=== PATIENT | male | born 1960 | race Caucasian/White ===

== ENCOUNTER 2018-11-24 10:52 | Outpatient (CLI) | payer MEDICARE ==
--- NOTE | 2018-11-24 12:24 | RAD ---
TWO VIEW CHEST: INDICATIONS: Cough. FINDINGS: The lungs appear clear. No infiltrate. Heart size is upper normal. Osseous structures are unremark able. IMPRESSION: No evidence of acute process. POS: H
== END 2018-11-24 10:53 | disposition home or self-care (01) ==
LOC: NAV RAD 10:52
PROVIDERS: ATTEND Internal Medicine
DX: R05 Cough (principal)
CPT/HCPCS: 71046

== ENCOUNTER 2019-11-12 08:53 | Emergency (ER) | payer MEDICARE | END 2019-11-12 09:50 | disposition home or self-care (01) | LOC: NAV ERS 08:53 | DX: K43.9 Ventral hernia without obstruction or gangrene (principal); M54.2 Cervicalgia; G89.29 Other chronic pain; I10 Essential (primary) hypertension; M10.9 Gout, unspecified; M19.90 Unspecified osteoarthritis, unspecified site; E66.9 Obesity, unspecified; F41.9 Anxiety disorder, unspecified; F17.220 Nicotine dependence, chewing tobacco, uncomplicated; Z79.899 Other long term (current) drug therapy | CPT/HCPCS: 99283 ==

== ENCOUNTER 2020-09-20 18:49 | Emergency (ER) | payer MEDICARE, MEDICAID ==
[~2020-09-20 18:49] MED LIST: Iopamidol 370 76% 100 ML VIAL ONE
[2020-09-20 19:35] LABS: Bilirubin Negative (Negative); Blood, Urine Negative (Negative); Clarity Clear (Clear); Glucose, Urine (Dipstick) Negative (Negative); Ketone, Urine Negative (Negative); Leukocyte Negative (Negative); Nitrite Negative (Negative); Protein, Urine (Dipstick) Negative (Neg-Trace); Urobilinogen 0.2 mg/dL (Less than 2)
[2020-09-20 19:43] LABS: #Basophils 0.1 thou/uL (0.0-0.2); #Eosinphils 0.2 thou/uL (0.0-0.7); #Lymphocytes 1.7 thou/uL (1.20-3.40); #Monocytes 0.6 thou/uL (0.11-0.59); #Neutrophils 6.5 thou/uL (1.40-6.50); %Basophils 1.2 % (0.0-1.0); %Eosinophils 2.1 % (0.0-10.0); %Monocytes 6.3 % (0.0-10.0); %Neutrophils 71.4 % (42.0-75.0); Hemoglobin 16.1 g/dL (14.0-18.0); Mean Corpuscular HGB CONC 31.8 g/dL (32.0-36.0); Mean Corpuscular Hemoglobin 30.6 pg (27.0-31.0); Mean Corpuscular Volume 96.3 fL (78.0-98.0); Mean Platelet Volume 6.1 fL (7.4-10.4); Platelet Count 272 thou/uL (130-400); RBC Distribution Width 13.2 % (11.5-14.5); Red Blood Cell (RBC) Count 5.26 mill/uL (4.70-6.10); White Blood Cell (WBC) Count 9.1 thou/uL (4.8-10.8)
[2020-09-20 19:52] LABS: ALT (SGPT) 15 U/L (8-55); AST (SGOT) 19 U/L (5-34); Albumin 3.9 g/dL (3.4-4.8); Alkaline Phosphatase 64 U/L (40-110); Anion Gap 15 mmol/L (10-20); BUN (Urea Nitrogen) 14 mg/dL (8.4-25.7); Bilirubin, Total 0.3 mg/dL (0.2-1.2); Calc. Creatinine Clearance 0 mL/min (70-130); Calcium 8.7 mg/dL (7.8-10.44); Carbon Dioxide 21 mmol/L (23-31); Chloride 106 mmol/L (98-107); Estimated GFR-MDRD 66; Globulin 3.1 g/dL (2.4-3.5); Glucose 126 mg/dL (80-115); Lipase 45 U/L (8-78); Sodium 138 mmol/L (136-145)
[2020-09-20] MEDS ORDERED: Sodium Chloride 0.9% 1,000 ML ONE (19:53)
[2020-09-20] MEDS ORDERED: Ondansetron PF 4 MG/2 ML Vial ONE (19:53)
[2020-09-20] MEDS ORDERED: Morphine 4 MG/ML VIAL ONE ×2 (19:53→21:37)
--- NOTE | 2020-09-20 21:15 | CT ---
CT OF THE ABDOMEN AND PELVIS 09/20/20 COMPARISON: None. HISTORY: Right upper quadrant pain for three days. TECHNIQUE: Axial CT imaging at 5 mm intervals from the lung bases through the pubic symphysis with IV contrast. Coronal and sagittal reformatted imaging obtained. FINDINGS: The imaged lung bases are unremarkable. No free intraperitoneal air or fluid. The liver, gallbladder, spleen, pancreas, adrenal glands, and kidneys demonstrate no acute findings. There is calcification within the prostate gland. Small bilateral fat containing inguinal hernias are present. Limited evaluation of the bowel without contrast media demonstrates no acute findings. The vascular structures of the abdomen/pelvis appear patent. No enlarged abdominal or pelvic lymph no sofie are present. Review of the osseous structures demonstrate no worrisome lytic or blastic bone lesi ons. Lower lumbar spine facet hypertrophic change present. IMPRESSION: No acute findings. Incidental findings as detailed above. POS: MICHAEL
== END 2020-09-20 21:46 | disposition home or self-care (01) ==
LOC: NAV ERS 18:49
DX: R10.11 Right upper quadrant pain (principal); I10 Essential (primary) hypertension; M10.9 Gout, unspecified; M19.90 Unspecified osteoarthritis, unspecified site; E66.9 Obesity, unspecified; F41.9 Anxiety disorder, unspecified; F17.220 Nicotine dependence, chewing tobacco, uncomplicated; Z79.899 Other long term (current) drug therapy
CPT/HCPCS: 74177; 80053; 81003; 83690; 84484; 85025; 93005; 96374; 96375; 96376; J2270; J2405; J7050; Q9967